=== PATIENT | female | born 1995 | race Caucasian/White ===

== ENCOUNTER 2020-10-10 17:17 | Outpatient (CLI) | payer OTHER ==
--- NOTE | 2020-10-10 18:42 | Non Stress Test Report ---
Non Stress Test Datetime Report Generated by CPN: 10/10/2020 18:41 DEMOGRAPHIC EGA NST: 33.3 INDICATION Indication for Study (NST) Other: IUP at 33.3 VITAL SIGNS Temperature - NST: 97.3 Pulse - NST: 110 RESP - NST: 18 NBPSYS NST: 103 NBPDIA NST: 62 MONITORING Monitor Explained: Monitor Explained; Test Explained; Patient Verbalized Understanding Time on Monitor: 10/10/2020 17:34 Time off Monitor: 10/10/2020 18:04 NST Duration: 30 NST INTERVENTIONS NST Interventions: PO Hydration Physician Notified NST: Dr. Jara BABY A: [id number] BABY A Movement : Present Contraction Frequency : 0 FHR Baseline : 135 Accelerations : 15X15 Decelerations : None Variability : Moderate 6-25bpm NST Review: Meets Criteria for Reactive NST NST Review and Verified By : GAUTAM Toribio Results: Reactive NST REPORT Report Trigger: Send Report
[2020-10-10 21:12] LABS: APPEARANCE,URINE CLEAR; BILIRUBIN,URINE NEGATIVE (NEGATIVE); COLOR,URINE STRAW; GLUCOSE, URINE 50 mg/dL (NEGATIVE); KETONES,URINE NEGATIVE (NEGATIVE); LEUKOCYTE ESTERASE,URINE TRACE (NEGATIVE); NITRITE,URINE NEGATIVE (NEGATIVE); PROTEIN,URINE NEGATIVE (NEGATIVE); URINE SPECIFIC GRAVITY 1.006; UROBILINOGEN,URINE NEGATIVE mg/dL (<2.0)
[2020-10-10 22:01] LABS: URINE AMPHETAMINES SCREEN NEGATIVE; URINE BARBITURATES SCREEN NEGATIVE; URINE BENZODIAZEPINES SCREEN NEGATIVE; URINE COCAINE SCREEN NEGATIVE; URINE MARIJUANA (THC) SCREEN NEGATIVE; URINE METHADONE SCREEN NEGATIVE; URINE PHENCYCLIDINE SCREEN NEGATIVE
== END 2020-10-10 18:11 | disposition home or self-care (01) ==
LOC: LC 17:17
PROVIDERS: ATTEND Obstetrics & Gynecology
DX: O36.8130 Decreased fetal movements, third trimester, not applicable or unspecified (principal); Z3A.33 33 weeks gestation of pregnancy
CPT/HCPCS: 59025; 80307; 81001

== ENCOUNTER 2020-10-18 11:54 | Emergency (ER) | payer OTHER ==
--- NOTE | 2020-10-18 12:20 | ER Document Report ---
ED Medical Screen (RME) - General Chief Complaint: Shortness Of Breath Stated Complaint: FAST HEART RATE,SHORT OF BREATH Time Seen by Provider: 10/18/20 12:18 Primary Care Provider: MARTINEZ ARMIJO MD [Primary Care Provider] - Follow up as needed - [facility] Notes: 10/18/20 12:23 25-year-old female presents to ED for evaluation of increased heart rate and shortness of breath. 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 Also noticed her heart rate to be elevated. Patient does not have a history of cardiovascular complaints or breathing difficulties. Patient does have anxiety however reports that this felt different. She felt like it was hard to take in a deep breath. She denies any recent sick contacts. Denies chest pain or verst. Denies any other complaints. Reports she is otherwise healthy. Reports no complications with her . Patient states she only takes vitamins. Denies any other complaints at this time. - Related Data Allergies/Adverse Reactions: No Known Allergies Allergy (Verified 10/18/20 12:15) Physical Exam - Vital signs Vitals: Temp Pulse Resp BP Pulse Ox 98.2 F 103 H 18 114/71 96 10/18/20 12:01 10/18/20 12:01 10/18/20 12:01 10/18/20 12:01 10/18/20 12:01 General: No acute distress. Alert and oriented x3. Sitting comfortably in a stretcher. Skin: Intact without any jaundice, pallor, or erythema. Warm and dry. HEENT: Normocephalic, atraumatic. Pupils are equal round reactive to light and accommodation. Extraocular movements are intact. TMs without erythema or bulging. Canals are clear. Nares patent without any discharge. Teeth in good condition. Pharynx without erythema, edema, or exudates. No tonsillar enlargement. Uvula is midline. Airway is patent. Neck: Supple with no lymphadenopathy. Full range of motion. Heart: Regular rapid rate and rhythm. S1,S2. No murmurs, rubs, or gallops. Lungs: Clear to ausculation bilaterally. No wheezes, rhonchi, rales. Equal chest expansion. No retractions. Abdomen: Gravid abdomen, nondistended. Positive bowel sounds in all 4 quadrants. No hepatosplenomegaly. No masses. No CVA tenderness bilaterally. Neuro: GCS 15. Moving all extremities without discomfort. Extremities: No calf tenderness or edema. No cyanosis or clubbing. Radial and pedal pulses 2+ bilaterally. Brisk capillary refill. Psych: Mood and affect appropriate. Reviewed EKG which shows a normal sinus rhythm without ST segment elevations or depressions. Course - Vital Signs Vital signs: Temp Pulse Resp BP Pulse Ox 98.2 F 103 H 18 114/71 96 10/18/20 12:10/18/20 12:10/18/20 12:10/18/20 12:10/18/20 12:01 Doctor's Discharge - Discharge Referrals: MARTINEZ ARMIJO MD [Primary Care Provider] - Follow up as needed
[2020-10-18 12:40] LABS: ABSOLUTE LYMPHOCYTES (AUTO) 1.8 10^3/uL (0.5-4.7); ABSOLUTE MONOCYTES (AUTO) 0.8 10^3/uL (0.1-1.4); ABSOLUTE NEUT (AUTO) 6.6 10^3/uL (1.7-8.2); BASOPHILS % (AUTO) 0.2 % (0-2); EOSINOPHILS % (AUTO) 0.3 % (0-6); HEMATOCRIT 34.9 % (36.0-47.0); HEMOGLOBIN 12.2 g/dL (12.0-15.5); LYMPHOCYTES % (AUTO) 19.6 % (13-45); MEAN CORPUSCULAR HEMOGLOBIN 30.6 pg (27.0-33.4); MEAN CORPUSCULAR VOLUME 87 fl (80-97); MONOCYTES % (AUTO) 8.6 % (3-13); PLATELET COUNT 187 10^3/uL (150-450); RED CELL DISTRIBUTION WIDTH 13.1 % (11.5-14.0); SEGMENTED NEUTROPHILS % (AUTO) 71.3 % (42-78); TOTAL CELLS COUNTED % (AUTO) 100 %; WHITE BLOOD COUNT 9.2 10^3/uL (4.0-10.5)
[2020-10-18 13:07] LABS: ALBUMIN 3.4 g/dL (3.5-5.0); ALKALINE PHOSPHATASE 105 U/L (38-126); ANION GAP 5 (5-19); ASPARTATE AMINO TRANSFERASE 17 U/L (14-36); BILIRUBIN,TOTAL 0.3 mg/dL (0.2-1.3); BLOOD UREA NITROGEN 10 mg/dL (7-20); CALCIUM 9.5 mg/dL (8.4-10.2); CARBON DIOXIDE 23 mmol/L (22-30); CHLORIDE 106 mmol/L (98-107); CREATINE KINASE 23 U/L (30-135); GLUCOSE 77 mg/dL (75-110); POTASSIUM 4.2 mmol/L (3.6-5.0); TOTAL PROTEIN 6.5 g/dL (6.3-8.2)
[2020-10-18 13:37] LABS: CREATINE KINASE MB < 0.22 ng/mL (<4.55); TROPONIN I < 0.012 ng/mL
--- NOTE | 2020-10-18 13:50 | ER Document Report ---
ED General - General Chief Complaint: Shortness Of Breath Stated Complaint: FAST HEART RATE,SHORT OF BREATH Time Seen by Provider: 10/18/20 12:18 Primary Care Provider: MARTINEZ ARMIJO MD [ACTIVE PROVISIONAL STAFF] - Follow up as needed - HPI Notes: Patient is a 25-year-old female, G1, P0 at approximately 36 weeks gestation, who presents emergency department for evaluation of shortness of breath and elevated heart rate. She states she started feeling short of breath today. She went to her OB, and her heart rate was elevated, so she was sent here for further evaluation. She states she was only mildly aware of her elevated heart rate. She denies any difficulty breathing now. She states she said no dyspnea on exertion. She denies any paroxysmal nocturnal dyspnea. She states she really does not have any symptoms at this time. She denies any recent posterior calf pain or swelling. She is feeling the baby move, no vaginal bleeding. She states she is completely asymptomatic at this time. - Related Data Allergies/Adverse Reactions: No Known Allergies Allergy (Verified 10/18/20 12:15) Home Medications: vitamins Past Medical History - General Information source: Patient - Social History Smoking Status: Former Smoker Chew tobacco use (# tins/day): No Frequency of alcohol use: None Drug Abuse: None Family History: Reviewed & Not Pertinent - Medical History Notes: Endometriosis Past Surgical History: Reports: Hx Abdominal Surgery - Laparoscopy for endometriosis Review of Systems - Review of Systems Constitutional: No symptoms reported EENT: No symptoms reported Cardiovascular: See HPI Respiratory: See HPI Gastrointestinal: No symptoms reported Genitourinary: No symptoms reported Female Genitourinary: See HPI Musculoskeletal: No symptoms reported Skin: No symptoms reported Neurological/Psychological: No symptoms reported Physical Exam - Vital signs Vitals: Temp Pulse Resp BP Pulse Ox 98.2 F 103 H 18 114/71 96 10/18/20 12:01 10/18/20 12:01 10/18/20 12:01 10/18/20 12:01 10/18/20 12:01 - Notes Notes: Vital signs reviewed, please refer to chart. Head is normocephalic, atraumatic. Pupils equal round, reactive to light. Neck is supple without meningismus. Heart is regular rate and rhythm, without murmur. Lungs are clear to auscultation bilaterally. Abdomen is gravid, nontender, normoactive bowel sounds throughout. Extremities without cyanosis, clubbing. Posterior calves are nontender. Peripheral pulses are equal. Skin is warm and dry. Patient is awake, alert, neurological exam is nonfocal. Course - Re-evaluation Re-evalutation: 10/18/20 13:48 Patient presents emergency department for evaluation of shortness of breath as well as elevated heart rate. Here in the emergency department her heart rate is only mildly elevated. Her other vitals are unremarkable. She is breathing normally, denies any symptoms at this time. Of course does involve a hypercoagulable state. Patient has no posterior calf tenderness. She is not tachycardic. She is not currently symptomatic in any way. Her symptoms have been present for less than 6 hours and again are entirely resolved. Initial troponin is negative. Discussed a second troponin to further evaluate for any cardiac etiology and any signs of strain secondary to possible pulmonary embolus. Patient is deciding whether or not she wants to stay or leave AGAINST MEDICAL ADVICE given her lack of symptoms. Will reevaluate shortly. 10/18/20 14:52 Patient remains asymptomatic. Her heart rate is in the 80s, blood pressure is normal. She is agreed to stay for the repeat troponin. No acute complaints. 10/18/20 16:55 Patient's repeat troponin is undetectable. She remains asymptomatic. Heart rate is 90, she is 98 1% on room air and her respiratory rate is normal. We will discharge her to home. She is told if her symptoms worsen or return she ne eds to return to the ED for further evaluation she voiced understanding. - Vital Signs Vital signs: Temp Pulse Resp BP Pulse Ox 98.2 F 103 H 14 114/76 98 10/18/20 12:01 10/18/20 12:01 10/18/20 15:03 10/18/20 15:03 10/18/20 15:03 - Laboratory Results Result Diagrams: 10/18/20 12:25 10/18/20 12:25 Laboratory Results Interpreted: 10/18/20 10/18/20 12:25 12:25 Hct 34.9 L Sodium 134.1 L Creatinine 0.43 L Creatine Kinase 23 L Albumin 3.4 L Critical Laboratory Results Reviewed: No Critical Results - Radiology Results Radiology Results Interpreted: 10/18/20 14:53 Chest X-Ray 10/18/20 13:49 IMPRESSION: NO ACUTE RADIOGRAPHIC FINDING IN THE CHEST. Critical Radiology Results Reviewed: No Critical Results - EKG Interpretation by Me Additional EKG results interpreted by me: 10/18/20 13:50 Sinus tachycardia. Normal axis and intervals. Inferior Q waves and T wave i nversions, possible ischemia versus normal variant. No old studies available for comparison. Discharge - Discharge Clinical Impression: Sinus tachycardia Dyspnea Qualifiers: Dyspnea type: shortness of breath Qualified Code(s): R06.02 - Shortness of breath; R06.00 - Dyspnea, unspecified; R06.01 - Orthopnea Condition: Stable Disposition: HOME, SELF-CARE Instructions: Sinus Tachycardia ([facility]), Dyspnea, Nonspecific ([facility]) Additional Instructions: No clear cause was identified for your symptoms today. Please rest, stay well- hydrated. 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 If your symptoms return, or if you develop worsening or new concerning symptoms of any sort, please return immediately to the emergency department for evaluation. Referrals: MARTINEZ ARMIJO MD [ACTIVE PROVISIONAL STAFF] - Follow up as needed
--- NOTE | 2020-10-18 14:13 | RADIOLOGY REPORT (SQ) ---
EXAM DESCRIPTION: CHEST SINGLE VIEW IMAGES COMPLETED DATE/TIME: 10/18/2020 2:02 pm REASON FOR STUDY: dyspnea, elevated heart rate COMPARISON: None. EXAM PARAMETERS: NUMBER OF VIEWS: One view. TECHNIQUE: Single frontal radiographic view of the chest acquired. RADIATION DOSE: NA LIMITATIONS: None. FINDINGS: LUNGS AND PLEURA: No opacities, masses or pneumothorax. No pleural effusion. MEDIASTINUM AND HILAR STRUCTURES: No masses. Contour normal. HEART AND VASCULAR STRUCTURES: Heart normal in size. Normal vasculature. BONES: No acute findings. HARDWARE: None in the chest. OTHER: No other significant finding. IMPRESSION: NO ACUTE RADIOGRAPHIC FINDING IN THE CHEST. TECHNICAL DOCUMENTATION: JOB ID: [id number] [employer]- All Rights Reserved Reading location - IP/workstation name: [email or web address]
[2020-10-18 17:01] VITALS: BP 127/79
--- NOTE | 2020-10-18 21:57 | EKG REPORT ---
SEVERITY:- ABNORMAL ECG - SINUS TACHYCARDIA LVH WITH STRAIN PATTERN : Confirmed by: Ewa Perry MD 18-Oct-2020 21:56:56
== END 2020-10-18 17:06 | disposition home or self-care (01) ==
LOC: ER 11:54
DX: O26.93 Pregnancy related conditions, unspecified, third trimester (principal); R00.0 Tachycardia, unspecified; R06.02 Shortness of breath; R06.00 Dyspnea, unspecified; R06.01 Orthopnea; Z3A.36 36 weeks gestation of pregnancy
CPT/HCPCS: 36415; 71045; 80053; 82550; 82553; 84484; 85025; 93005; 93010; 99285

== ENCOUNTER → 2020-10-18 | Outpatient (CLI) | payer OTHER | LOC: LC 11:40 | PROVIDERS: ATTEND Obstetrics & Gynecology | DX: Z53.9 Procedure and treatment not carried out, unspecified reason (principal) ==

== ENCOUNTER 2020-11-26 03:36 | Inpatient (IN) | payer OTHER ==
[2020-11-26 04:13] LABS: APPEARANCE,URINE SLIGHTLY-CLOUDY; BILIRUBIN,URINE NEGATIVE (NEGATIVE); COLOR,URINE STRAW; GLUCOSE, URINE NEGATIVE (NEGATIVE); KETONES,URINE NEGATIVE (NEGATIVE); LEUKOCYTE ESTERASE,URINE SMALL (NEGATIVE); NITRITE,URINE NEGATIVE (NEGATIVE); PROTEIN,URINE NEGATIVE (NEGATIVE); URINE SPECIFIC GRAVITY 1.009; UROBILINOGEN,URINE NEGATIVE mg/dL (<2.0)
[2020-11-26] MEDS ORDERED: OXYTOCIN/0.9 % SODIUM CHLORIDE 30 UNIT/500 ML RTUINJ IV PRN ×2 (04:40→17:34)
[2020-11-26] MEDS ORDERED: RINGERS SOLUTION,LACTATED 500 ML IV ONE (04:41)
[2020-11-26] MEDS ORDERED: RINGERS SOLUTION,LACTATED 1,000 ML IV ONE (04:41)
[2020-11-26] MEDS ORDERED: ONDANSETRON HCL INJ/PF 4 MG/2 ML SDV IV PRN (04:42)
[2020-11-26] MEDS ORDERED: NALBUPHINE HCL INJ 10 MG/1 ML AMPULE INJ ONE (04:42)
[2020-11-26 04:49] LABS: URINE AMPHETAMINES SCREEN NEGATIVE; URINE BARBITURATES SCREEN NEGATIVE; URINE BENZODIAZEPINES SCREEN NEGATIVE; URINE COCAINE SCREEN NEGATIVE; URINE MARIJUANA (THC) SCREEN NEGATIVE; URINE METHADONE SCREEN NEGATIVE; URINE PHENCYCLIDINE SCREEN NEGATIVE
[2020-11-26] MEDS ORDERED: MISOPROSTOL 0.2 MG TABLET ONE (04:54)
[2020-11-26] MEDS ORDERED: OXYTOCIN 10 UNIT/ML VIAL ONE (04:54)
[2020-11-26] MEDS ORDERED: NALBUPHINE HCL INJ 10 MG/1 ML AMPULE ONE (04:54)
[2020-11-26] MEDS ORDERED: LIDOCAINE 1% INJ-PF (10 MG/ML) 30 ML SDV ONE (04:54)
[2020-11-26] MEDS ORDERED: OXYTOCIN/0.9 % SODIUM CHLORIDE 30 UNIT/500 ML RTUINJ ONE (04:55)
[2020-11-26] MEDS ORDERED: ONDANSETRON HCL INJ/PF 4 MG/2 ML SDV ONE (04:59)
[2020-11-26] MEDS ORDERED: EPHEDRINE SULFATE INJ 50 MG/1 ML AMPULE ONE (06:25)
[2020-11-26] MEDS ORDERED: FENTANYL/BUPIVACAINE/NS/PF 300 MCG/150 ML RTUINJ EPI ONE (06:25)
[2020-11-26] MEDS ORDERED: ROPIVACAINE HCL 0.2% INJ/PF (2 MG/ML) 20 ML SDV ONE (06:25)
[2020-11-26 06:37] LABS: ABSOLUTE LYMPHOCYTES (AUTO) 1.5 10^3/uL (0.5-4.7); ABSOLUTE MONOCYTES (AUTO) 0.7 10^3/uL (0.1-1.4); ABSOLUTE NEUT (AUTO) 12.3 10^3/uL (1.7-8.2); BASOPHILS % (AUTO) 0.1 % (0-2); EOSINOPHILS % (AUTO) 0.1 % (0-6); HEMATOCRIT 33.1 % (36.0-47.0); HEMOGLOBIN 11.5 g/dL (12.0-15.5); LYMPHOCYTES % (AUTO) 10.5 % (13-45); MEAN CORPUSCULAR HGB CONC 34.7 g/dL (32.0-36.0); MEAN CORPUSCULAR VOLUME 86 fl (80-97); MONOCYTES % (AUTO) 5.1 % (3-13); PLATELET COUNT 161 10^3/uL (150-450); RED BLOOD COUNT 3.83 10^6/uL (3.72-5.28); RED CELL DISTRIBUTION WIDTH 13.7 % (11.5-14.0); SEGMENTED NEUTROPHILS % (AUTO) 84.2 % (42-78); TOTAL CELLS COUNTED % (AUTO) 100 %; WHITE BLOOD COUNT 14.6 10^3/uL (4.0-10.5)
--- NOTE | 2020-11-26 09:50 | Admission Physical ---
Datetime Report Generated by CPN: 11/26/2020 09:49 CURRENT ADMISSION Chief Complaint: Uterine Contractions; Suspected Ruptured Membranes Indication for Induction: PROM Admit Impression : Term, Intrauterine ; No Active Labor; Ruptured Membranes Admit Plan: Admit to Unit; Initiate Labor Protocol; Initiate Labor Induction Protocol ALLERGIES Medication Allergies: No Medication Allergies: No Known Allergies (11/26/2020) Latex: No Latex Allergies OBSTETRICAL HISTORY EDC: 11/25/2020 00:00 : 1 Para: 0 Term: 0 : 0 SAB: 0 IAB: 0 Livin Gestational Diabetes: No Rh Sensitization: No Incompetent Cervix: No VIRIDIANA: No Infertility: No ART Treatment: No Uterine Anomaly: No IUGR: No Hx Previous C/S: No Macrosomia: No Hx Loss/Stillborn: No PIH: No Hx : No Placenta Previa/Abruption: No Depression/PP Depression: Yes PTL/PROM: No Post Hemorrhage: No Current Procedures: Ultrasound; NST Obstetrical History Comments: G1: current SEE RECORDS Alcohol: No Marijuana : No Cocaine: No Other Illicit Drugs: No Cigarettes: Former Smoker. 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 Heart Disease: No Hosp/Surgery: Yes Autoimmune Disorder: No Anesthetic Complications: No Kidney Disease: No Abnormal Pap Smear: Yes Neuro/Epilepsy: No Psychiatric Disorders: Yes Other Medical Diseases: No Hepatitis/Liver Disease: No Significant Family History: No Varicosities/Phlebitis: No Trauma/Violence : No Thyroid Dysfunction: No Medical History Comments: endometriosis surg, LGSIL 09, anxiety and depression per chart INFECTIOUS HISTORY Gonorrhea: No Genital Herpes: No Chlamydia: No Tuberculosis: No Syphilis: No Hepatitis: No HIV/AIDS Exposure: No Rash or Viral Illness: No HPV: No PHYSICAL EXAM General: Normal HEENT: Normal Neurologic: Normal Thyroid: Deferred Heart: Normal Lungs: Normal Breast: Deferred Back: Normal Abdomen: Normal Genitourinary Exam: Normal Extremities: Normal DTRs: Normal Pelvic Type: Adequate Vital Signs: Reviewed VAGINAL EXAM Dilatation: 3 Effacement: 100 Station: -2 Contraction Comments: q 2-3 FETUS A EGA: 40.1 Monitoring: External US FHR- Baseline: 145 Variability: Moderate 6-25bpm Accelerations: 15X15 Decelerations: None FHR Category: Category I Presentation: Vertex Admit Comment: 25yo at 40+1ega presents for contractions and bleeding. grossly ruptured upon evaluation in triage at approx 0400. Actimprom done to confirm SROM - positive. GBS negative. H/o Depression - discharge plannner placed. h/o LGSIL pap smear. Admit to labor and delivery for IOL due to PROM. Anticipate . Pt desires epidural for analgesia. PLANS FOR LABOR AND DELIVERY Labor and Delivery: None Other Pain Management Plans: unsure Feeding Preference: Breast Benefit of Breast Feed Discussed: Yes Circumcision: Yes INFORMED CONSENT Informed Consent Obtained: Vaginal Delivery; Risks, Benefits and Alternatives Discussed Signature: with User ID: [email or web address]
[2020-11-26] MEDS ORDERED: RINGERS SOLUTION,LACTATED 1,000 ML IV PRN (09:59)
[2020-11-26] MEDS ORDERED: FENTANYL CITRATE INJ/PF 100 MCG/2 ML AMPUL ONE (10:21)
[2020-11-26] MEDS ORDERED: CEFAZOLIN 2 GM/D5W RTU 0 GM/0 ML RTUPB IV ONE (10:22)
--- NOTE | 2020-11-26 11:24 | L&D Progress Notes ---
PROGRESS NOTES Datetime Report Generated by CPN: 11/26/2020 11:24 PROGRESS NOTE Informed Consent Obtained: Vaginal Delivery; Risks, Benefits and Alternatives Discussed Comment: irreg uc's, comfortable with epidural, Cat 1 strip VAGINAL EXAM Dilatation: 3 Effacement: 100 Station: -2 Contractions: q 2-3 LAST VAGINAL EXAM-NURSING Nursing Exam Dilitation: 7.0 Nursing Exam Effacement: 90 Nursing Exam Station: -2 Nursing Exam Contractions: unable to determine, pt. rocking and squatting at bedside FETUS A Presentation: Vertex SIGNATURE SIGNATURE: [id number];[id number];[id number] Assignment: Anila Kamara MD Signature: with User ID: [email or web address] : with User ID: [email or web address]
[2020-11-26] MEDS ORDERED: GLYCERIN/WITCH HAZEL LEAF 1 EACH MED..WIPE TP PRN (17:34)
[2020-11-26] MEDS ORDERED: ACETAMINOPHEN 325 MG TABLET PO PRN (17:34)
[2020-11-26] MEDS ORDERED: MEASLES,MUMPS&RUBELLA VACC/PF 0.5 ML VIAL SUBCUT PRN (17:34)
[2020-11-26] MEDS ORDERED: FAMOTIDINE 20 MG TABLET PO PRN (17:34)
[2020-11-26] MEDS ORDERED: PSEUDOEPHEDRINE HCL 30 MG TABLET PO PRN (17:34)
[2020-11-26] MEDS ORDERED: DIBUCAINE 1% OINTMENT 28 GM TP PRN (17:34)
[2020-11-26] MEDS ORDERED: MAG HYDROX/AL HYDROX/SIMETH SUSP 30 ML UDCUP PO PRN (17:34)
[2020-11-26] MEDS ORDERED: ZOLPIDEM TARTRATE 5 MG TABLET PO PRN (17:34)
[2020-11-26] MEDS ORDERED: VARICELLA VACC/PF (1350 UNIT/0.5 ML) 0.5 ML VIAL SUBCUT PRN (17:34)
[2020-11-26] MEDS ORDERED: MAGNESIUM HYDROXIDE SUSP 30 ML UDCUP PO PRN (17:34)
[2020-11-26] MEDS ORDERED: ACETAMINOPHEN 650 MG SUPP.RECT PR PRN (17:34)
[2020-11-26] MEDS ORDERED: BENZOCAINE/MENTHOL AEROSOL SPRAY 56 ML TOP PRN (17:34)
[2020-11-26] MEDS ORDERED: ACETAMINOPHEN WITH CODEINE #3 TABLET PO PRN (17:34)
[2020-11-26] MEDS ORDERED: DIPHENHYDRAMINE HCL 25 MG CAPSULE PO PRN (17:34)
[2020-11-26] MEDS ORDERED: DIPH/PERTUSS(ACELL)/TETANUS VAC/PF 0.5 ML SYR (>=10YO) IM PRN (17:34)
[2020-11-26] MEDS ORDERED: IBUPROFEN 800 MG TABLET ONE (17:58)
--- NOTE | 2020-11-26 19:32 | Delivery Summary ---
Del Sum A-C Datetime Report Generated by CPN: 11/26/2020 19:32 DELIVERY PERSONNEL DELIVERY PERSONNEL: [id number] Delivery Doctor:: Anila Kamara MD ULTRASONIC CLEANER:: Romaine Lomas CRNA Labor and Delivery Nurse:: Hanane Raymundo RNzigzag stitcher Nurse:: Isabela Ricci RN Nursery Nurse:: Jennifer Upton RN Nursery Nurse:: Eusebia Hardwick RN Materials Mgmt Tech/CAMERA MECHANIC: Kayleen Lehman, LOOP PULLER MATERNAL INFORMATION Delivery Anesthesia: Epidural Medications After Delivery: Pitocin 30 Units in 500ml NS/D5W Estimated Blood Loss (ml): 300 Maternal Complications: None Provider Comments: VMI delivered in TAVIA presentation. No nuchal cord. Shoulders and body delivered without difficulty. Infant to maternal abdomen and after delay cord doubly clamped and cut. Placenta delivered intact spontaneously. FF at U. Perineal laceration repaired. mother and baby stable upon provider leaving the room LABOR SUMMARY EDC: 11/25/2020 00:00 No. Babies in Womb: 1 Attempted: No Labor Anesthesia: Epidural LABOR INFORMATION Reason for Induction: Not Applicable Onset of Labor: 11/26/2020 04:05 Complete Dilatation: 11/26/2020 15:44 Oxytocin: N/A Group B Beta Strep: negative Antibiotics # of Doses: 0 Name of Antibiotic Given: n/a Steroids Given: None Reason Steroids Not Administered: Not Applicable MEMBRANES Membranes Rupture Method: Spontaneous Rupture of Membranes: 11/26/2020 04:05 Length of Rupture (hr): 12.88 Amniotic Fluid Color: Clear Amniotic Fluid Amount: Small Amniotic Fluid Odor: Normal STAGES OF LABOR Stage 1 hr: 11 Stage 1 min: 39 Stage 2 hr: 1 Stage 2 min: 14 Stage 3 hr: 0 Stage 3 min: 3 Total Time in Labor hr: 12 Total Time in Labor min: 56 VAGINAL DELIVERY Episiotomy: None Laceration #1: Vaginal Laceration Extension #1: First Degree Laceration Repair: Yes Laceration Repair Note: left vaginal sidewall laceration repaired. Sponge Count Correct: Yes Sharps Count Correct: Yes CSECTION DELIVERY Primary Indication: N/A Secondary Indication: N/A CSection Incidence: N/A Labor: N/A Elective: N/A CSection Incision: N/A BABY A INFORMATION Delivery Date/Time: 11/26/2020 16:58 Method of Delivery: Vaginal Nurse Controlled Delivery: No Born in Route : No : N/A Forceps: N/A Vacuum Extraction: N/A Shoulder Dystocia : No PRESENTATION/POSITION BABY A Presentation: Cephalic Cephalic Presentation: Vertex Vertex Position: Left Occipital Anterior Breech Presentation: N/A PLACENTA INFORMATION BABY A Placenta Delivery Time : 11/26/2020 17:01 Placenta Method of Delivery: Spontaneous Placenta Status: Delivered SCORES BABY A Heart Rate 1 min: >100 bpm Resp Effort 1 min: Good Cry Reflex Irritability 1 min: Cough or Sneeze or Pulls Away Muscle Tone 1 min: Active Motion Color 1 min: Blue/Pale Resuscitation Effort 1 min: Tactile Stimulation SCORE 1 MIN: 8 Heart Rate 5 min: >100 bpm Resp Effort 5 min: Good Cry Reflex Irritability 5 min: Cough or Sneeze or Pulls Away Muscle Tone 5 min: Active Motion Color 5 min: Body [place], Extremities Blue Resuscitation Effort 5 min: N/A SCORE 5 MIN: 9 INFANT INFORMATION BABY A Gestational Age at Delivery: 40.1 Gestational Status: Full Term- 39- 40.6 Weeks Infant Outcome : Liveborn Infant Condition : Stable Infant Sex: Male IDENTIFICATION BABY A Verification Date/Time: 11/26/2020 17:03 ID Band Number: [id number] Mother's Name Verified: Yes Infant RN Verifying Infant: MCely Becerril RN, T. Gabriel RN WEIGHT/LENGTH BABY A Infant Birthweight (gm): 3287 Infant Weight (lb): 7 Infant Weight (oz): 4 Length (in): 21.00 Infant Length (cm): 53.34 CORD INFORMATION BABY A No. Cord Vessels: 3 Nuchal Cord : N/A Cord Blood Taken: Yes-For Eval (Mom's Blood Type - or O+) Suction: None ASSESSMENT BABY A Skin to Skin: Yes Skin to Skin Time (min): 60 BABY B INFORMATION : N/A SIGNATURES Signature: Electronically signed by Anila Kamara MD ([facility]) on 11/26/2020 at 17:23 with User ID: [email or web address]
--- NOTE | 2020-11-26 19:32 | Birth Certificate Data ---
Cert Data Datetime Report Generated by CPN: 11/26/2020 19:32 CERTIFICATE DATA Delivery Provider: Anila Kamara MD (10/10/2020 17:30:Gwendolyn Becerril RN) 48b. Now Livin (10/10/2020 17:30:Jael Jurado RN) RISK FACTORS IN THIS 49a. Diabetes: No (10/10/2020 17:30:Kanwal Gilbert RN) 49b. Hypertension: No (10/10/2020 17:30:Kanwal Gilbert RN) 49c. Previous Births: 0 (10/10/2020 17:30:Jael Jurado RN) 49d. Stillborns: No (10/10/2020 17:30:Kanwal Gilbert RN) 49d. IUGR: No (10/10/2020 17:30:Kanwal Gilbert RN) 49e. Infertility Treatment: No (10/10/2020 17:30:Kanwal Gilbert RN) Mother's Height 50b. Height Inches: 62 (11/26/2020 17:05:QS system process) Mother's Weight 51b. Weight at Delivery (lbs): 178 (11/26/2020 17:05:QS system process) 52. Dt Last Normal Menses Began: 02/19/2020 00:00 (10/10/2020 17:30:Angela Miner RN) Infections Present/Treated 53a. Gonorrhea: No (10/10/2020 17:30:Kanwal Gilbert RN) Results this Hospital Visit : Negative (10/10/2020 17:30:Kanwal Gilbert RN) 53b. Syphilis: No (10/10/2020 17:30:Kanwal Gilbert RN) 53c. Chlamydia: No (10/10/2020 17:30:Kanwal Gilbert RN) Results this Hospital Visit: Negative (10/10/2020 17:30:Kanwal Gilbert RN) 53d. Hepatitis B: No (10/10/2020 17:30:Kanwal Gilbert RN) Results this Hospital Visit: Negative (10/10/2020 17:30:Jael Jurado RN) 53e. Hepatitis C: Negative (10/10/2020 17:30:Angela Miner RN) 53h. Mother Tested for HBsAG: Yes (10/10/2020 17:30:Angela Miner RN) 53i. Date Tested: 05/17/2020 00:00 (10/10/2020 17:30:Angela Miner RN) 53j. Test Result: Negative (10/10/2020 17:30:Jael Jurado RN) Obstetric Procedures 54a, b, c. Obstetric Procedures: Ultrasound; NST (10/10/2020 17:30:Angela Miner RN) Cigarette Smoking Cigarette Smoking: Former Smoker. [id number] (10/10/2020 17:30:Kanwal Gilbert RN) 55a. 3 Months Before Preg - Ci (10/10/2020 17:30:Kanwal Gilbert RN) 55a. Packs: 0 (10/10/2020 17:30:Kanwal Gilbert RN) 55b. 1st Trimester of Preg- Ci (10/10/2020 17:30:Kanwal Gilbert RN) 55b. Packs: 0 (10/10/2020 17:30:Kanwal Gilbert RN) 55c. 2nd Trimester of Preg- Ci (10/10/2020 17:30:Kanwal Gilbert RN) 55c. Packs: 0 (10/10/2020 17:30:Kanwal Gilbert RN) 55d. 3rd Trimester of Preg- Ci (10/10/2020 17:30:Kanwal Gilbert RN) 55d. Packs: 0 (10/10/2020 17:30:Kanwal Gilbert RN) Onset of Labor 56a. PROM >12 Hrs: 12.88 (10/10/2020 17:30:QS system process) 56b. Precipitous Labor <3 Hrs: 12 (10/10/2020 17:30:QS system process) 56c. Prolonged Labor > 20 Hrs: 12 (10/10/2020 17:30:QS system process) 57a. Induction of Labor: N/A (10/10/2020 17:30:Isabela Ricci RN) 57c. Non-Vertex Presentation A: Vertex (10/10/2020 17:30:Gwendolyn Becerril RN) 57d. Steroids - Lung Mat: None (10/10/2020 17:30:Isabela Ricci RN) 57d. Steroids - Lung Mat: Not Applicable (10/10/2020 17:30:Isabela Ricci RN) 57f. Mat [place] or Temp >100.4: 99.5 (10/10/2020 17:30:Hanane Raymundo RN) 57g. Moderate/Heavy Meconium: Clear (11/26/2020 04:05:Kanwal Gilbert RN) 57h. Intolerance of Labor: N/A (10/10/2020 17:30:Hanane Raymundo RN) : N/A (10/10/2020 17:30:Hanane Raymundo RN) 57i. Epidural/Spinal Anesthesia: Epidural (10/10/2020 17:30:Isabela Ricci RN) Method of Delivery 58a. Forceps - Unsuccessful A: N/A (10/10/2020 17:30:Gwendolyn Becerril RN) 58b. Vacuum - Unsuccessful A: N/A (10/10/2020 17:30:Gwendolyn Becerril RN) 58c. Presentation at 58c. Presentation at - A : Vertex (10/10/2020 17:30:Gwendolyn Becerril RN) 58c. Presentation at - A : N/A (10/10/2020 17:30:Gwendolyn Becerril RN) 58c. Presentation at - A : Cephalic (11/26/2020 15:44:Isabela Ricci RN) Final Route and Method of Del 58d. Baby A Route/Delivery: Vaginal (11/26/2020 16:58:Hanane Raymundo RN) 58e. Trial of Labor Attempted: No (10/10/2020 17:30:Isabela Ricci RN) 58e. Trial of Labor Attempted A: N/A (10/10/2020 17:30:Isabela Ricci RN) 58e. Trial of Labor Attempted B: N/A (10/10/2020 17:30:Gwendolyn Becerril RN) Maternal Morbidity 59b. 3rd or 4th Degree Lacs: Vaginal (10/10/2020 17:30:[facility] MD ([facility] Birthweight Baby A: 3287 (10/10/2020 17:30:Hanane Raymundo RN) 60a. Pounds : 7 (10/10/2020 17:30:QS system process) 60b. Ounces: 4 (10/10/2020 17:30:QS system process) 61. GA at Delivery Baby A: 40.1 (10/10/2020 17:30:Gwendolyn Becerril RN) : Full Term- 39- 40.6 Weeks (10/10/2020 17:30:QS system process) 62a. 5 Minute Baby A: 9 (10/10/2020 17:30:QS system process)
--- NOTE | 2020-11-26 19:48 | Warning Signs in Babies ---
VOD Warning Signs Datetime Report Generated by [facility]: 11/26/2020 19:47 VOD#608 -Warning Signs in Babies: Viewed with Parent(s)/Family (10/10/2020 17:30:Sirena Haskins RN)
[2020-11-26] MEDS: FERROUS SULFATE 325 MG TABLET PO SCH (23:21)
[2020-11-26] MEDS: DOCUSATE SODIUM 100 MG CAPSULE PO SCH (23:21)
[2020-11-26] MEDS: IBUPROFEN 800 MG TABLET PO SCH (23:22)
[2020-11-27] MEDS: IBUPROFEN 800 MG TABLET PO SCH ×3 (05:21→22:08)
[2020-11-27] MEDS: ACETAMINOPHEN WITH CODEINE #3 TABLET PO PRN ×2 (05:26→20:50)
[2020-11-27 06:36] LABS: HEMATOCRIT 29.4 % (36.0-47.0); MEAN CORPUSCULAR HEMOGLOBIN 29.9 pg (27.0-33.4); MEAN CORPUSCULAR HGB CONC 33.9 g/dL (32.0-36.0); MEAN CORPUSCULAR VOLUME 88 fl (80-97); PLATELET COUNT 164 10^3/uL (150-450); RED BLOOD COUNT 3.34 10^6/uL (3.72-5.28); RED CELL DISTRIBUTION WIDTH 14.5 % (11.5-14.0); WHITE BLOOD COUNT 13.9 10^3/uL (4.0-10.5)
[2020-11-27] MEDS: SENNOSIDES/DOCUSATE 8.6-50 MG 1 EACH TABLET PO SCH (09:29)
[2020-11-27] MEDS: FERROUS SULFATE 325 MG TABLET PO SCH ×2 (09:29→17:28)
[2020-11-27] MEDS: DOCUSATE SODIUM 100 MG CAPSULE PO SCH ×2 (09:29→17:28)
--- NOTE | 2020-11-27 09:47 | PDOC PROGRESS REPORT ---
Subjective-OB Progress Note for:: 11/27/20 - PP day #1, doing well, UOB, voiding, O+. Rubella Immune, , Hx of anxiety/ depression in the past Physical Exam (OB) Vital Signs: Temp Pulse Resp BP Pulse Ox 97.7 F 76 16 127/58 H 100 11/27/20 08:00 11/27/20 08:00 11/27/20 08:00 11/27/20 08:00 11/27/20 08:00 Intake & Output 11/26/20 11/27/20 11/28/20 06:59 06:59 06:59 Intake Total 800 Balance 800 Weight 80.5 kg - General General Appearance: Appears well, Alert In distress: None - PIH/Pre-Eclampsia Headache: Absent Epigastric Pain: No Visual Changes: No - Maternal Morbidity 59. Maternal Morbidity (serious complications experinced by the mother associated with labor and delivery: None of the above - Lochia Lochia Amount: Small 10-25 ml Lochia Color: Rubra/Red - Abdomen Description: Soft, Round Fundal Description: Firm, Midline Fundal Height: u/u - u/2 - Respiratory Respiratory Status: No respiratory distress - Abdominal Distension: No distension Tenderness: Nontender - Genitourinary Genitourinary Note: voiding - Extremities Upper extremity: Normal inspection Lower extremities: Normal inspection - Neurological Cognition: Normal Orientation: AAOx4 - Psychological Associated symptoms: Normal affect, Normal mood - Skin Skin Temperature: Warm Skin Moisture: Dry Objective-Diagnostic Laboratory: 11/27/20 06:07 11/27/20 06:07 WBC 13.9 H RBC 3.34 L Hgb 10.0 L Hct 29.4 L MCV 88 MCH 29.9 MCHC 33.9 RDW 14.5 H Plt Count 164 Assessment and Plan(PN) - Assessment and Plan (1) Spontaneous rupture of amniotic membranes Is this a current diagnosis for this admission?: Yes (2) Vaginal delivery Is this a current diagnosis for this admission?: Yes Plan:: Routine PP orders, ambulation encouraged. - Time Spent with Patient Time with patient: Less than 15 minutes Medications reviewed and adjusted accordingly: Yes - Disposition Anticipated Discharge Disposition: Home, Self Care Anticipated Discharge Timeframe: within 24 hours
[2020-11-27] MEDS: PRENATAL VITAMIN W DHA CAPSULE PO SCH (12:54)
[2020-11-28] MEDS: IBUPROFEN 800 MG TABLET PO SCH (06:12)
[2020-11-28] MEDS: PRENATAL VITAMIN W DHA CAPSULE PO SCH (11:05)
--- NOTE | 2020-11-28 11:25 | PDOC DISCHARGE SUMMARY ---
Impression - Admit/DC Date/PCP Admission Date/Primary Care Provider: 11/26/20 04:44 COMPA CHOI MD Discharge Date: 11/28/20 - Discharge Diagnosis (1) Vaginal delivery Is this a current diagnosis for this admission?: Yes (2) Spontaneous rupture of amniotic membranes Is this a current diagnosis for this admission?: Yes - Additional Information Discharge Diet: Regular Discharge Activity: Balance Activity w/Rest, Pelvic Rest Referrals: COMPA CHOI MD [Primary Care Provider] - Prescriptions: Ibuprofen [Motrin 800 mg Tablet] 800 mg PO Q8HP PRN #60 tablet PRN Reason: Home Medications: Pnv No.95/Ferrous Fum/Folic AC [ Caplet] 1 tab PO DAILY 10/10/20 Ibuprofen [Motrin 800 mg Tablet] 800 mg PO Q8HP PRN #60 tablet 11/28/20 Hospital Course 59. Maternal Morbidity (serious complications experinced by the mother associated with labor and delivery: None of the above Results Laboratory Results: WBC 13.9 10^3/uL (4.0-10.5) H 11/27/20 06:07 RBC 3.34 10^6/uL (3.72-5.28) L 11/27/20 06:07 Hgb 10.0 g/dL (12.0-15.5) L 11/27/20 06:07 Hct 29.4 % (36.0-47.0) L 11/27/20 06:07 MCV 88 fl (80-97) 11/27/20 06:07 MCH 29.9 pg (27.0-33.4) 11/27/20 06:07 MCHC 33.9 g/dL (32.0-36.0) 11/27/20 06:07 RDW 14.5 % (11.5-14.0) H 11/27/20 06:07 Plt Count 164 10^3/uL (150-450) 11/27/20 06:07 Lymph % (Auto) 10.5 % (13-45) L 11/26/20 06:00 [place] % (Auto) 5.1 % (3-13) 11/26/20 06:00 Eos % (Auto) 0.1 % (0-6) 11/26/20 06:00 Baso % (Auto) 0.1 % (0-2) 11/26/20 06:00 Absolute Neuts (auto) 12.3 10^3/uL (1.7-8.2) H 11/26/20 06:00 Absolute Lymphs (auto) 1.5 10^3/uL (0.5-4.7) 11/26/20 06:00 Absolute Monos (auto) 0.7 10^3/uL (0.1-1.4) 11/26/20 06:00 Absolute Eos (auto) 0.0 10^3/uL (0.0-0.6) 11/26/20 06:00 Absolute Basos (auto) 0.0 10^3/uL (0.0-0.2) 11/26/20 06:00 Seg Neutrophils % 84.2 % (42-78) H 11/26/20 06:00 Urine Color STRAW 11/26/20 03:41 Urine Appearance SLIGHTLY-CLOUDY 11/26/20 03:41 Urine pH 7.0 (5.0-9.0) 11/26/20 03:41 Ur Specific Ves[place] 1.009 11/26/20 03:41 Urine Protein NEGATIVE mg/dL (NEGATIVE) 11/26/20 03:41 Urine Glucose (UA) NEGATIVE mg/dL (NEGATIVE) 11/26/20 03:41 Urine Ketones NEGATIVE mg/dL (NEGATIVE) 11/26/20 03:41 Urine Blood LARGE (NEGATIVE) H 11/26/20 03:41 Urine Nitrite NEGATIVE (NEGATIVE) 11/26/20 03:41 Urine Bilirubin NEGATIVE (NEGATIVE) 11/26/20 03:41 Urine Urobilinogen NEGATIVE mg/dL (<2.0) 11/26/20 03:41 Ur Leukocyte Esterase SMALL (NEGATIVE) H 11/26/20 03:41 Urine Ascorbic Acid NEGATIVE (NEGATIVE) 11/26/20 03:41 Membranes Rupture POSITIVE (NEGATIVE) H 11/26/20 04:10 Urine Opiates Screen NEGATIVE 11/26/20 03:41 Urine Methadone Screen NEGATIVE 11/26/20 03:41 Ur Barbiturates Screen NEGATIVE 11/26/20 03:41 Ur Phencyclidine Scrn NEGATIVE 11/26/20 03:41 Ur Amphetamines Screen NEGATIVE 11/26/20 03:41 U Benzodiazepines Scrn NEGATIVE 11/26/20 03:41 Urine Cocaine Screen NEGATIVE 11/26/20 03:41 U Marijuana (THC) Screen NEGATIVE 11/26/20 03:41 RPR NONREACTIVE (NONREACTIVE) 11/26/20 06:00 Blood Type O POSITIVE 11/26/20 06:00 Antibody Screen NEGATIVE 11/26/20 06:00 Plan Plan of Treatment: follow up at [facility] in 4 weeks for post check
[2020-11-28 11:33] VITALS: BP 127/58
[2020-11-28] MEDS: DOCUSATE SODIUM 100 MG CAPSULE PO SCH (12:05)
[2020-11-28] MEDS: SENNOSIDES/DOCUSATE 8.6-50 MG 1 EACH TABLET PO SCH (12:05)
[2020-11-28] MEDS: FERROUS SULFATE 325 MG TABLET PO SCH (12:05)
== END 2020-11-28 13:08 | disposition home or self-care (01) | DRG 807 ==
LOC: LC 03:36 → LR 04:44 → 2S 20:07
PROVIDERS: ADMIT Student in an Organized Health Care Education/Training Program; ATTEND Student in an Organized Health Care Education/Training Program
PROC: 10E0XZZ Delivery of Products of Conception, External Approach (ICD-10-PCS; principal; 2020-11-26)
PROC: 0HQ9XZZ Repair Perineum Skin, External Approach (ICD-10-PCS; 2020-11-26)
DX: O99.344 Other mental disorders complicating childbirth (principal); Z37.0 Single live birth; F41.8 Other specified anxiety disorders; O70.0 First degree perineal laceration during delivery; O99.334 Smoking (tobacco) complicating childbirth; F17.211 Nicotine dependence, cigarettes, in remission; Z3A.40 40 weeks gestation of pregnancy
CPT/HCPCS: 1967; 36415; 59025; 80307; 81005; 84112; 85025; 85027; 86592; 86850; 86900; 86901; J0690; J2300; J2405; J2590; J2795; J3010; J3490